=== PATIENT | female | born 1950 | race Caucasian/White ===

== ENCOUNTER → 2016-10-18 | Outpatient (CLI) | payer BC ==
[~2016-10-18] MED LIST: EPIN0.3A3 IM; FLUO20TA25 PO; HYDR25TA11 PO; PANT40TA5 PO; VALS1TAB26 PO
[2016-10-18 09:50] LABS: ASPARTATE AMINO TRANSFERASE 19 U/L (15-37); BLOOD UREA NITROGEN 16 mg/dL (7-18)
== END | disposition home or self-care (01) ==
LOC: STAR 08:38
PROVIDERS: ATTEND Orthopaedic Surgery
DX: Z01.818 Encounter for other preprocedural examination (principal); M75.121 Complete rotator cuff tear or rupture of right shoulder, not specified as traumatic; M75.41 Impingement syndrome of right shoulder; M75.21 Bicipital tendinitis, right shoulder
CPT/HCPCS: 36415; 80053; 93005

== ENCOUNTER 2016-10-28 08:28 | Day surgery (SDC) | payer BC ==
[~2016-10-28] VITALS: Ht 162.6 cm; Wt 84.3 kg
[~2016-10-28 08:28] MED LIST changes: +BUPIVACAINE/PF-EPI 0.5% 1:200K ONE; +LIDOCAINE 0.5%-EPI 1:200K, 50ML ONE; +NEOSPORIN OINT, 15GM ONE
[2016-10-28 08:52] VITALS: BP 117/77
[2016-10-28] MEDS ORDERED: LACTATED RINGERS 1,000 ML IV SCH (08:55)
[2016-10-28] MEDS ORDERED: LIDOCAINE 1%, 2ML SQ PRN (09:00)
[2016-10-28] MEDS ORDERED: LIDOCAINE 1%, 2ML ONE (09:03)
[2016-10-28] MEDS ORDERED: FENTANYL PF 250 MCG/5ML ONE (09:35)
[2016-10-28] MEDS ORDERED: ACETAMINOPHEN 325 MG TABLET PO PRN (10:00)
[2016-10-28] MEDS ORDERED: hydrALAzine 20 MG/ML, 1ML IV PRN (10:00)
[2016-10-28] MEDS ORDERED: ALBUTEROL SULFATE 2.5 MG/3 ML NPPB PRN (10:00)
[2016-10-28] MEDS ORDERED: OXYcodone 5 MG/5 ML ORAL.SOL UDC PO PRN (10:00)
[2016-10-28] MEDS ORDERED: METOPROLOL 1 MG/ML, 5ML IV PRN (10:00)
[2016-10-28] MEDS ORDERED: PROMETHAZINE 25 MG/ML, 1ML IV PRN (10:00)
[2016-10-28] MEDS ORDERED: EPHEDRINE 50 MG/ML, 1ML IVPush PRN (10:00)
[2016-10-28] MEDS ORDERED: ONDANSETRON 2MG/ML, 2ML IVPush PRN (10:00)
[2016-10-28] MEDS ORDERED: FENTANYL PF 100 MCG/2ML IV PRN (10:00)
[2016-10-28] MEDS ORDERED: HYDROmorphone 1 MG/ML, 1ML IV PRN (10:00)
[2016-10-28] MEDS ORDERED: LABETALOL 5MG/ML, 20ML IV PRN (10:00)
[2016-10-28] MEDS ORDERED: ROCURONIUM 10 MG/ML ONE (10:53)
[2016-10-28] MEDS ORDERED: GLYCOPYRROLATE 0.2MG/1ML ONE (10:53)
[2016-10-28] MEDS ORDERED: PROPOFOL 10 MG/ML, 20ML ONE (10:53)
[2016-10-28] MEDS ORDERED: ONDANSETRON 2MG/ML, 2ML ONE (10:53)
[2016-10-28] MEDS ORDERED: CEFAZOLIN 1,000 MG ONE (10:53)
[2016-10-28] MEDS ORDERED: NEOSTIGMINE 1 MG/ML, 10ML ONE (10:53)
[2016-10-28] MEDS ORDERED: DEXAMETHASONE 4 MG/ML, 1ML ONE (10:53)
[2016-10-28] MEDS ORDERED: EPINEPHRINE 0.3 MG IM SCH (11:00)
[2016-10-28] MEDS ORDERED: LIDOCAINE 0.5%-EPI 1:200K, 50ML INFIL ONE (11:17)
[2016-10-28] MEDS ORDERED: BUPIVACAINE/PF-EPI 0.5% 1:200K INFIL ONE (11:18)
[2016-10-29] MEDS ORDERED: HYDROCHLOROTHIAZIDE PO SCH (09:00)
[2016-10-29] MEDS ORDERED: PANTOPROZOLE 40MG TABLET PO SCH (09:00)
[2016-10-29] MEDS ORDERED: VALSARTAN PO SCH (09:00)
[2016-10-29] MEDS ORDERED: FLUOXETINE 20 MG CAPSULE PO SCH (09:00)
[2016-10-29] MEDS ORDERED: [UNRECOGNIZED DRUG - OTHER] PO SCH (09:00)
== END 2016-10-28 14:30 ==
LOC: OUT 08:28
PROVIDERS: ATTEND Orthopaedic Surgery
DX: M75.111 Incomplete rotator cuff tear or rupture of right shoulder, not specified as traumatic (principal); M75.41 Impingement syndrome of right shoulder; M19.011 Primary osteoarthritis, right shoulder; S43.431A Superior glenoid labrum lesion of right shoulder, initial encounter; S46.111A Strain of muscle, fascia and tendon of long head of biceps, right arm, initial encounter; K21.9 Gastro-esophageal reflux disease without esophagitis; I10 Essential (primary) hypertension; X58.XXXA Exposure to other specified factors, initial encounter; Y93.89 Activity, other specified; Y92.89 Other specified places as the place of occurrence of the external cause; Y99.8 Other external cause status; Z96.641 Presence of right artificial hip joint; Z98.890 Other specified postprocedural states; Z88.0 Allergy status to penicillin; Z88.8 Allergy status to other drugs, medicaments and biological substances; Z91.09 Other allergy status, other than to drugs and biological substances; Z88.6 Allergy status to analgesic agent
CPT/HCPCS: 29822; 29824; 29826; 29827; 29828; C1713; J0690; J1100; J2405; J2704; J2710; J3010; J3490; J7120